=== PATIENT | female | born 1930 | race Caucasian/White ===

== ENCOUNTER 2017-08-26 16:33 | Emergency (ER) | payer OTHER ==
[~2017-08-26] VITALS: Ht 157.5 cm; Wt 57.4 kg
[2017-08-26 16:45] VITALS: BP 150/69; PULSE 74; TEMP 36.4; O2SAT 97; Ht 157.5 cm; Wt 57.4 kg
[2017-08-26] MEDS ORDERED: LORA-741 PO (17:13)
[2017-08-26] MEDS ORDERED: ATIVAN 1MG HOMEPACK PO ONE (17:15)
--- NOTE | 2017-08-26 17:43 | EMERGENCY ROOM VISIT NOTE ---
History Report prepared by Igor: Ela Jaramillo Under the Supervision of: Dr. Dominguez Thrasher M.D. First contact with patient: 16:57 Chief Complaint: MENTAL HEALTH EVALUATION Stated Complaint: AGITATED,CONFRONTATIONAL, TODAY History of Present Illness The patient is an 87 year old female who presents to the Emergency Room for a mental health evaluation. Per the patient's son, the patient just lost her 3 hours ago. He states that he was in hospice. He reports that the patient is in her second stage of Alzheimer or Dementia, but he cannot remember which. He reports that she is in her confrontational stage. He states that she throws things and becomes violent when mad. The son reports that he bought her here because he thinks she is going to become upset when she learns of her 's passing. He states that he told her that they were following her to be checked out to make sure they were okay. The son reports he wants something to calm her down if she becomes upset. He states that he does not want her placed anywhere yet as he thinks that will scare her. He denies the patient being suicidal and homicidal. He states that he lives with her and a homestead president of the [place] comes in as well. The patient denies eating/drinking abnormally, abdominal pain, fever, vomiting, headache, suicidal thoughts, and drinking alcohol. Source of History: patient, family Onset: 3 hours ago Position: other (global) Quality: other (mental) Timing: other (episode) Associated Symptoms: No fevers, No headache, No vomiting, No abdominal pain Note: The patient denies eating/drinking abnormally and suicidal thoughts. Review of Systems See HPI for pertinent positives & negatives. A total of 10 systems reviewed and were otherwise negative. Past Medical & Surgical Medical Problems: (1) Dementia Family History Patient reports no known family medical history. Social History Smoking Status: Never Smoker Alcohol Use: none Marital Status: Housing Status: lives with family Occupation Status: retired Current/Historical Medications Scheduled PRN Lorazepam (Ativan), 0.5 MG PO Q8 PRN for Anxiety/Agitation Miscellaneous Medications None (Patient States No Home Meds) Allergies Uncoded Allergies: NKDA (Allergy, Mild, none, 04/22/09) Physical Exam Vital Signs Date Time Temp Pulse Resp B/P (MAP) Pulse Ox O2 Delivery O2 Flow Rate FiO2 08/26/17 16:45 36.4 74 17 150/69 97 Room Air Physical Exam General: Non-ill appearing older female in no acute distress. Baseline dementia , but answers questions appropriately. Non agitated. HEENT: Normal cephalic atraumatic. Pupils are equal round and reactive to light. Extraocular movements are intact. Oropharynx is pink with moist mucous membranes. No swelling of the mouth lips or tongue. Neck: Supple with a midline trachea. No meningeal signs or stiffness, no JVD or bruits. No Stridor. Chest: Clear to auscultation bilaterally. No wheezes or rhonchi. No increased work of breathing. Heart: regular rate and rhythm. Abdomen: Soft nontender, nondistended without rebound guarding or rigidity. Extremities: No cyanosis clubbing or edema. No calf tenderness or assymetry Spine/Back. Non tender to palpation. No CVA tenderness Skin: Good turgor without rashes. Neurologic exam: Cranial nerves two through 12 are intact. Motor and sensation are intact and symmetrical throughout. Psych: No suicidal ideations. Medical Decision & Procedures Medications Administered Medications (Trade) Dose Ordered Sig/Wiyl Route Start Time Stop Time Status Last Admin Dose Admin Lorazepam (Ativan 1MG Home Pack) 1 homepack UD ONCE PO 08/26/17 17:15 08/26/17 17:16 DC 08/26/17 17:15 1 HOMEPACK ED Course 1657: Past medical records reviewed. The patient was evaluated in room A6, and a complete history and physical examination were performed. I discussed the results and treatment plan with her and her son. They verbalized agreement of the treatment plan. The patient was discharged home. 1715: Ordered Lorazepam 1 homepack PO. Medical Decision Differential diagnoses include anxiety, bereavement, Alzheimer, dementia. This patient comes in as described above. She was brought in by her son. She has dementia and has been having anxiety. Her today. She tends to act out. He wants to get her something when she gets agitated he does not want a full workup and does not want her to be admitted at this point. she's been workup for this before and he lives with her at home. He just wants something take the edge off of it. I did give her a home pack of Ativan 0.5 mg and will give her a small prescription for this as well. She was warned that this could make her drowsy and do not take for drinking, driving, working. She follow with her doctor this week for recheck Medication Reconcilliation Current Medication List: was personally reviewed by me Blood Pressure Screening Patient's blood pressure: Elevated blood pressure Blood pressure disposition: Elevated BP felt to be situational Impression Primary Impression: Anxiety Additional Impressions: Bereavement Dementia Scribe Attestation The scribe's documentation has been prepared under my direction and personally reviewed by me in its entirety. I confirm that the note above accurately reflects all work, treatment, procedures, and medical decision making performed by me. Departure Information Dispostion Home / Self-Care Prescriptions Lorazepam (ATIVAN) 0.5 Mg Tab 0.5 MG PO Q8 Y for Anxiety/Agitation, #10 TAB Prov: Dominguez Thrasher M.D. 08/26/17 Referrals Latisha Escalona DO (PCP) Forms HOME CARE DOCUMENTATION FORM, IMPORTANT VISIT INFORMATION Patient Instructions My [facility] Additional Instructions Rest. Drink plenty of fluids Forr anxiety or stress may use Ativan 0.5 mg every 8 hours Ativan may make you drowsy and do not take before drinking, driving, working and be careful getting up and down Follow-up with your doctor either tomorrow or on Wednesday Problem Qualifiers
== END 2017-08-26 17:23 | disposition home or self-care (01) ==
LOC: C.EDB 16:34 → C.EDA 17:23
DX: Z00.8 Encounter for other general examination (principal); F41.9 Anxiety disorder, unspecified; Z63.4 Disappearance and death of family member; F03.90 Unspecified dementia, unspecified severity, without behavioral disturbance, psychotic disturbance, mood disturbance, and anxiety